=== PATIENT | female | born 1960 | race Asian ===

== ENCOUNTER 2017-09-10 17:24 | Emergency (ER) | payer OTHER | END 2017-09-10 18:10 | disposition home or self-care (01) | LOC: E/R 17:24 | DX: J20.9 Acute bronchitis, unspecified (principal); I10 Essential (primary) hypertension; E11.9 Type 2 diabetes mellitus without complications; Z79.84 Long term (current) use of oral hypoglycemic drugs | CPT/HCPCS: 99284; Z7502 ==

== ENCOUNTER 2018-02-25 09:57 | Emergency (ER) | payer OTHER ==
[2018-02-25 13:11] LABS: URINE PH (Dip) POC 5.5 (5.0-8.5)
[2018-02-25 13:11] LABS: URINE BLOOD (Dip) POC Trace-intact (NEGATIVE); URINE GLUCOSE (Dip) POC Negative (NEGATIVE); URINE KETONES (Dip) POC Negative (NEGATIVE); URINE LEUKOCYTE EST (Dip) POC Negative (NEGATIVE); URINE NITRITE (Dip) POC Negative (NEGATIVE); URINE TOTAL PROTEIN POC Negative (NEGATIVE)
== END 2018-02-25 14:01 | disposition home or self-care (01) ==
LOC: FTE 09:57
DX: M54.5 Low back pain (principal); E11.9 Type 2 diabetes mellitus without complications; I10 Essential (primary) hypertension; Z79.84 Long term (current) use of oral hypoglycemic drugs
CPT/HCPCS: 81003; 99283